=== PATIENT | female | born 1985 | race Caucasian/White ===

== ENCOUNTER 2018-06-19 09:06 | Inpatient (IN) ==
[2018-06-19 10:28] LABS: Baso # (Auto) 0.1 th/mm3 (0.0-0.2); Baso % (Auto) 0.6 % (0.0-2.0); Eos # (Auto) 0.1 th/mm3 (0.0-0.4); Eos % (Auto) 0.5 % (0.0-4.0); Hematocrit 36.6 % (35.0-46.0); Hemoglobin 12.5 gm/dL (11.6-15.3); Lymph # (Auto) 2.2 th/mm3 (1.0-4.8); Lymph % (Auto) 16.6 % (9.0-44.0); Mean Corpuscular HGB Conc 34.3 % (32.0-36.0); Mean Corpuscular Hemoglobin 29.6 pg (27.0-34.0); Mean Corpuscular Volume 86.5 fL (80.0-100.0); Mean Platelet Volume 8.3 fL (7.0-11.0); Mono # (Auto) 0.4 th/mm3 (0.0-0.9); Mono % (Auto) 3.1 % (0.0-8.0); Neut # (Auto) 10.4 th/mm3 (1.8-7.7); Neut % (Auto) 79.2 % (16.0-70.0); Platelet Count 262 th/mm3 (150-450); Red Blood Count 4.23 mil/mm3 (4.00-5.30); Red Cell Distribution Width 15.5 % (11.6-17.2); White Blood Count 13.1 th/mm3 (4.0-11.0)
[2018-06-19 10:40] LABS: Amphetamine Urine With Conf Neg (Neg); Benzodiazepine Urine With Conf Neg (Neg)
[2018-06-19] MEDS ORDERED: Citric Acid/Sodium Citrate Liq 30 ML UDC PO SCH (10:45)
[2018-06-19] MEDS ORDERED: Sodium Chloride 0.9% 2 ML Flush PRN IV.FLUSH (10:47)
[2018-06-19 10:48] LABS: Bilirubin,Urine Negative (Negative); Clarity,Urine Hazy (Clear); Color,Urine Yellow (Yellw/Straw); Glucose,Urine (UA) Negative (Negative); Leukocyte Esterase,Urine Negative (Negative); Mucus,Urine Few /lpf (Occasional); Nitrite,Urine Negative (Negative); Specific Gravity,Urine 1.019 (1.002-1.035); Squamous Epithelial Cell,Urine 2 /hpf (0-5); Triple Phosphate Crystal,Urine Occasional /hpf
[2018-06-19] MEDS ORDERED: Morphine Sulfate PF Inj 5 MG/10 ML Ampul ONE (11:14)
[2018-06-19] MEDS ORDERED: EPINEPHrine PF/SF Inj 1 MG/ML Ampul I-OCULAR ONE (11:33)
[2018-06-19] MEDS ORDERED: Naloxone Inj 0.4 MG/ML Vial IV.PUSH PRN (12:00)
[2018-06-19] MEDS ORDERED: Phenylephrine/NS 1000 MCG/10ML Syringe IV.PUSH ONE (12:00)
--- NOTE | 2018-06-19 12:03 | P.HPOB ---
Ms. MCCOY is a 32 y/o F at gestational age 39w3d here for a scheduled C- section. She reports a "mucous plug" yesterday, cough x1 week, and lower back pain. Pt reports movement has been normal and she has not experienced contractions. Denies vaginal bleeding, leakage of fluid, fever, CP, SOB, headache, or visual changes. All of her prior pregnancies were full-term C- sections. Per patient, her C-sections were due to her being "too small." No complications in previous C-sections. Denies any gynecological surgeries. Prior to her menstrual pattern was every ~28 days, lasted for ~6 days, with moderate flow. Denies PMH and PSH. No medications outside of vitamin and iron pills. NKDA. Denies family history of medical conditions. Social history includes a 5 pack year smoking history, social drinking (not in current ), and no recreational drug use. GBS neg on 05/23/18. Denies any abnormal tests during course of . Blood type if O+. Gen: NAD Cardiovascular: Normal S1/S2, no lower extremity edema Respiratory: Normal breath sounds in all alvarez Assessment/Plan: 1) IUP @ 39w3d 2) Repeat x3, #4 today
[2018-06-19] MEDS ORDERED: Acetaminophen 325 MG Tablet PO PRN (14:40)
[2018-06-19] MEDS ORDERED: Simethicone 80 MG Chew Tablet PO PRN (14:40)
--- NOTE | 2018-06-19 14:51 | XR ---
EXAM DATE: 06/19/2018 2:21 PM EDT AGE/SEX: 32 years / Female INDICATIONS: Evaluate for foreign body post . CLINICAL DATA: This is the patient's initial encounter. Patient reports that signs and symptoms have been present for 1 day and indicates a pain score of Nonresponsive. MEDICAL/SURGICAL HISTORY: Non-responsive. Non-responsive. COMPARISON: No prior exams available for comparison. FINDINGS: 2 AP views of the abdomen were performed. On the film marked # 1, There appears to be a Bovie device overlying the left upper quadrant. On the film marked # 2 there is a surgical type drain overlying t he proximal upper left thigh. The bowel gas pattern is unremarkable. The bony structures are grossly intact. The findings were relayed to the OR at the time the images were performed. CONCLUSION: Bovie device overlying the left upper quadrant. Surgical drain overlying the proximal left thigh. Electronically signed by: Ruddy Uribe MD 06/19/2018 2:50 PM EDT
[2018-06-19] MEDS ORDERED: Oxytocin 30 Units/500ml Premix 30 UNITS/500 ML BAG IV.SIG ONE (15:00)
--- NOTE | 2018-06-19 15:41 | MP ---
cc: Russell Castañeda MD DATE OF OPERATION: 06/19/2018 PREOPERATIVE DIAGNOSES: 1. Intrauterine at 39 weeks. 2. Mole of the left labia. 3. Desires permanent sterilization. POSTOPERATIVE DIAGNOSES: 1. Intrauterine at 39 weeks. 2. Mole of the left labia. 3. Desires permanent sterilization. PROCEDURE PERFORMED: 1. Excision of a 6 x 6 mm left labial mole. 2. Repeat low transverse section. 3. Bilateral tubal ligation. ANESTHESIA: Spinal. SURGEON: Russell Castañeda MD FINDINGS: A normal female , Apgars 9 and 9, weight was 613. The fallopian tubes, uterus, and ovaries were normal. COMPLICATIONS: She had a hematoma around the right uterine artery, which went retroperitoneal and through the broad ligament. This was quite difficult to control. COUNTS: Counts were correct; however, we did lose a needle in the middle of the surgery and got an x-ray to confirm. ESTIMATED BLOOD LOSS: Blood loss was 800 mL. FLUIDS: Crystalloids. CONDITION: The patient tolerated the procedure well and went to the recovery room in good condition. DESCRIPTION OF PROCEDURE: The patient was taken to the operating room and identified by name band and verbally, given a spinal anesthetic, and prepped and draped in the usual sterile fashion for a section. The first thing we did before we prepped and draped, is we removed the mole from her left labia with scissors and the hemostasis was created using silver nitrate. A timeout was taken and the old Pfannenstiel incisions were excised completely and the incision taken down to the midline until fascia was obtained. The fascia was taken off the rectus muscles by blunt and sharp dissection. This was quite difficult. There was a lot of scar tissue in this area. Once the abdominal cavity was entered, the incision was extended with care to avoid the urinary bladder, which was quite high up on the uterus and the anterior abdominal wall. At this point, a bladder flap was created; however, this was quite difficult. Pushing the bladder out of harm's way, we went a little bit higher than I normally go on the uterus to avoid bladder injury. This incision was taken down in the midline until the uterine cavity was entered and the incision was extended with the surgeon's fingers with good results. The vertex was grasped and using fundal pressure, the vertex was delivered. The hypopharynx and nasopharynx were suctioned and the remainder of the infant delivered. There was light meconium noted. The cord blood was obtained and the placenta was removed manually. The cord was allowed to pulse for 5-5 seconds. The uterine incision was repaired with 0 Vicryl in a running fashion with 1 layer and during the first layer, we got close to the right uterine vessel apparently and the large hematoma followed immediately. I called Dr. Emanuel Burrows in to help manage the situation. I put pressure on it. We evacuated this hematoma and with several [id number] stitches using 3-0 Vicryl on a small needle and [address] needle, we were able to stop the bleeding. We used Francisco several times to try to stop the bleeding when it was just a dull ooze. Once this had been accomplished and we had hemostasis, we put a little bit more Francisco to it and then we turned our attention to the fallopian tubes. The fallopian tubes were then identified and a small piece taken out of the midportion bilaterally using 2 plain gut. The uterus was delivered back into the abdomen and the surgical sites were again inspected for several minutes to make sure we had hemostasis. At this point, we reapproximated the rectus muscles with 0 Vicryl in a running fashion. We reapproximated the fascia with 0 Vicryl, the subcutaneous was repaired with 3-0 Vicryl and the skin was repaired with 4-0 Monocryl in a subcuticular manner. At this point, the wound was sterilely dressed. The patient tolerated the procedure well. We did get an x-ray at the end of the surgery as there was a missing needle that was found, but it was far away from the surgical site. We wanted to make sure that we did not have a missing needle. R. MD SOFÍA Hernandez/lalitha , 02:32 PM , 02:46 PM
--- NOTE | 2018-06-19 16:36 | P.HP ---
History of Present Illness Service: LABOR AND DELIVERY Primary Care Physician: Trista Nguyen Chief Complaint: 39 WEEK , HERE FOR REPEAT C/SECTION AND BILATERAL TUBAL History of Present Illness: 39 WEEKS GESTATION PREVIOUS C SECTION X 3 GBS NEGATIVE DESIRES STERILIZATION - Diagnosis (1) Term (2) Previous section (3) Sterilization Inpatient Certification: I certify that the inpatient services were ordered in accordance with Medicare regulations governing the order. This includes certification that hospital inpatient services are reasonable and necessary and in the case of services not specified as inpatient-only under 42 CFR 419.22(n), that they are appropriately provided as inpatient services in accordance to with the 2-midnight benchmark under 43 CFR 412.3(e) Estimated Total Length of Stay (Days): 3 Plans for Post Hospital Care: Home Review of Systems All other systems reviewed negative except as stated in HPI Respiratory: Reports cough Comments: X 1 WEEK Musculoskeletal: Reports back pain Comments: LOWER PMFSH - History History Provided By: Medical Record - Social History I have reviewed the patient's Social History: Yes - Tobacco History Second Hand Smoke Exposure: No Tobacco Use In Past 30 Days: Yes (1/2 PPD) Smoking Status: Current every day smoker Tobacco Type: Cigarettes Packs Per Day: 0.5 Years Smoked: 10 - Alcohol History How Often Do You Have a Drink Containing Alcohol: Never - Substance Use History Substance History: No History of Abuse - Travel History History of Recent Travel: No Recent Travel in the [place] Within the Last 8 Weeks: No Recent Travel Out of the Country Within the Last 8 Weeks: No - Immunization History Hx Influenza Vaccine This Season: No Medications and Allergies Active Medications: Active Medications Acetaminophen (Tylenol) 650 mg PO Q6H PRN PRN Reason: PAIN SCALE 1 TO 2 Diphenhydramine HCl (Benadryl) 50 mg PO Q6H PRN PRN Reason: MILD TO MODERATE ITCHING Stop: 06/20/18 16:22 Diphenhydramine HCl (Benadryl Inj) 25 mg IV.PUSH Q6H PRN PRN Reason: MILD TO MODERATE ITCHING Stop: 06/20/18 16:22 Diphtheria/Pertussis/Tetanus Vacc (Boostrix Vaccine Inj) 0.5 ml IM .ONCE ONE Stop: 06/20/18 16:01 Lactated Ringer's (Lr 1000 Ml Inj) 1,000 mls @ 150 mls/hr IV.CONT .[facility]6H40M [facility] Last Admin: 06/19/18 10:46 Dose: 150 mls/hr Cefazolin Sodium 1,000 mg/ (Sodium Chloride) 100 mls @ 200 mls/hr IV.SIG Q8H [facility] Stop: 06/19/18 23:29 Lactated Ringer's (Lr 1000 Ml Inj) 1,000 mls @ 100 mls/hr IV.CONT .Q10H [facility] Stop: 06/20/18 15:39 Oxytocin (Pitocin 30 Units/Ns 500 Ml Premix) 30 units in 500 mls @ 100 mls/hr IV.SIG ONCE ONE Stop: 06/19/18 19:59 Oxytocin (Pitocin 30 Units/Ns 500 Ml Premix) 30 units in 500 mls @ 100 mls/hr IV.SIG UNSCH PRN PRN Reason: Heavy bleeding Ibuprofen (Motrin) 800 mg PO Q8H PRN PRN Reason: cramping Measles/Mumps/Rubella Vaccine Live (M-M-R Ii Vaccine Inj) 0.5 ml SQ .ONCE ONE Stop: 06/20/18 16:01 Miscellaneous Information ([facility] [place] Nursing Information) 1 each OTHER UNSCH PRN PRN Reason: SEE LABEL COMMENTS Stop: 06/20/18 16:22 Miscellaneous Information ([facility] [place] Nursing Information) 1 each OTHER UNSCH PRN PRN Reason: SEE LABEL COMMENTS Stop: 06/20/18 16:22 Naloxone HCl (Narcan Inj) 0.4 mg IV.PUSH UNSCH PRN PRN Reason: SEE LABEL COMMENTS Stop: 06/20/18 16:22 Ondansetron HCl (Zofran Inj) 4 mg IV.PUSH Q6H PRN PRN Reason: NAUSEA OR VOMITING Oxycodone/Acetaminophen (Percocet 5/325 Mg) 1 tab PO Q4H PRN PRN Reason: PAIN SCALE 3 TO 5 Oxycodone/Acetaminophen (Percocet 5/325 Mg) 2 tab PO Q4H PRN PRN Reason: PAIN SCALE 6 TO 10 Vit/Calcium/Iron/Folic Ac (Stuartnatal Plus 3) 1 tab PO DAILY DAVID Senna/Docusate Sodium (Demetra-Colace) 2 tab PO Q12H PRN PRN Reason: CONSTIPATION Simethicone (Mylicon Chew) 80 mg PO QID PRN PRN Reason: FLATULENCE Sodium Chloride (Ns Flush) 2 ml IV.FLUSH BID DAVID Sodium Chloride (Ns Flush) 2 ml IV.FLUSH PRN PRN PRN Reason: FLUSH AFTER USING IV ACCESS Zolpidem Tartrate (Ambien) 5 mg PO HS PRN PRN Reason: INSOMNIA Allergies Allergy/AdvReac Type Severity Reaction Status Date / Time No Known Allergies Allergy Verified 06/19/18 09:43 Home Medications Medication Instructions Recorded Confirmed Type vit,[id number] 1 tab PO DAILY 06/19/18 06/19/18 History [PNV 29-1] Exam Vital signs: Vital Signs 06/19/18 10:47 06/19/18 10:54 06/19/18 10:55 Temperature 98.6 F Pulse Rate 79 77 80 Respiratory Rate 18 Blood Pressure 117/75 120/76 06/19/18 14:45 06/19/18 15:00 06/19/18 15:08 Temperature 97.3 F L Pulse Rate 99 H 91 H Respiratory Rate 14 16 Blood Pressure 96/50 L 95/53 L 06/19/18 15:15 06/19/18 15:23 06/19/18 15:29 Temperature 97.5 F L Pulse Rate 69 75 Respiratory Rate 14 12 Blood Pressure 98/59 L 101/61 06/19/18 15:36 06/19/18 15:44 06/19/18 15:45 Temperature 97.7 F Pulse Rate 75 Respiratory Rate 12 Blood Pressure 98/59 L 101/60 06/19/18 16:21 Temperature 97.7 F Pulse Rate 73 Respiratory Rate 16 Blood Pressure 80/57 L Intake & Output 06/18/18 06/19/18 06/19/18 18:59 06:59 18:59 Weight 53.524 kg Other: Weight On Admission 53.524 kg Narrative: EXAM DONE BY ANGELI LIU MS3 - Constitutional no acute distress - Routine HEENT Exam Head: Present: normocephalic - Routine Respiratory Exam Present: CTA bilaterally - Routine Cardiovascular Exam Present: RRR, S1, S2 - Routine Abdominal Exam Present: soft, normoactive bowel sounds Comments: GRAVID - Routine Skin Exam Present: intact - Routine Neurological Exam Present: alert, oriented X3 Results - Labs CBC & Chem 7: 06/19/18 10:00 Labs: Laboratory Results - last 24 hr 10/22/18 10/22/18 10/22/18 10:00 10:00 10:00 WBC 13.1 H RBC 4.23 Hgb 12.5 Hct 36.6 MCV 86.5 MCH 29.6 MCHC 34.3 RDW 15.5 Plt Count 262 MPV 8.3 Neut % (Auto) 79.2 H Lymph % (Auto) 16.6 Ada % (Auto) 3.1 Eos % (Auto) 0.5 Baso % (Auto) 0.6 Neut # (Auto) 10.4 H Lymph # (Auto) 2.2 Ada # (Auto) 0.4 Eos # (Auto) 0.1 Baso # (Auto) 0.1 WBC Differential . Differential Comment Auto diff final Urine Color Yellow Urine Clarity Hazy H Urine pH 7.0 Ur Specific Neeses 1.019 Urine Protein 100 H Urine Glucose (UA) Negative Urine Ketones Negative Urine Occult Blood Negative Urine Nitrate Negative Urine Bilirubin Negative Urine Urobilinogen 2.0 H Ur Leukocyte Esterase Negative Urine RBC 2 Urine WBC 1 Ur Squamous Epith Cells 2 Triple Phos Crystals Occasional H Urine Mucus Few H Micro UA Comment Culture not ind Ur Microscopic Review Not Reportable Urine Culture Comments Culture not ind Urine Opiates Screen Ur Barbiturates Screen Ur Amphetamine Screen U Benzodiazepines Scrn Urine Cocaine Screen U Cannabinoids Screen Blood Type O Positive Blood Type Recheck Antibody Screen Negative 06/19/18 10:00 WBC RBC Hgb Hct MCV MCH MCHC RDW Plt Count MPV Neut % (Auto) Lymph % (Auto) Ada % (Auto) Eos % (Auto) Baso % (Auto) Neut # (Auto) Lymph # (Auto) Ada # (Auto) Eos # (Auto) Baso # (Auto) WBC Differential Differential Comment Urine Color Urine Clarity Urine pH Ur Specific Neeses Urine Protein Urine Glucose (UA) Urine Ketones Urine Occult Blood Urine Nitrate Urine Bilirubin Urine Urobilinogen Ur Leukocyte Esterase Urine RBC Urine WBC Ur Squamous Epith Cells Triple Phos Crystals Urine Mucus Micro UA Comment Ur Microscopic Review Urine Culture Comments Urine Opiates Screen Neg Ur Barbiturates Screen Neg Ur Amphetamine Screen Neg U Benzodiazepines Scrn Neg Urine Cocaine Screen Neg U Cannabinoids Screen Neg Blood Type Blood Type Recheck Antibody Screen - Imaging Impressions Abdomen X-Ray 06/19/18 14:21 CONCLUSION: Bovie device overlying the left upper quadrant. Surgical drain overlying the proximal left thigh. Caprini VTE Risk Assessment Caprini VTE Risk Assessment: No/Low Risk (score <= 1) Caprini Risk Assessment Model: Point Value = 1 Point Value = 2 Point Value = 3 Point Value = 5 Age 41-60 Minor surgery BMI > 25 kg/m2 Swollen legs Varicose veins or History of unexplained or recurrent spontaneous Oral contraceptives or hormone replacement Sepsis (< 1 month) Serious lung disease, including pneumonia (< 1 month) Abnormal pulmonary function Acute myocardial infarction Congestive heart failure (< 1 month) History of inflammatory bowel disease Medical patient at bed rest Age 61-74 Arthroscopic surgery Major open surgery (> 45 min) Laparoscopic surgery (> 45 min) Malignancy Confined to bed (> 72 hours) Immobilizing plaster cast Central venous access Age >= 75 History of VTE Family history of VTE Factor V Leiden Prothrombin [id number] Lupus anticoagulant Anticardiolipin antibodies Elevated serum homocysteine Heparin-induced thrombocytopenia Other congenital or acquired thrombophilia Stroke (< 1 month) Elective arthroplasty Hip, pelvis, or leg fracture Acute spinal cord injury (< 1 month) Prophylaxis Regimen: Total Risk Factor Score Risk Level Prophylaxis Regimen 0-1 Low Early ambulation 2 Moderate Order ONE of the following: *Sequential Compression Device (SCD) *Heparin 5000 units SQ BID 3-4 Higher Order ONE of the following medications: *Heparin 5000 units SQ TID *Enoxaparin/Lovenox 40 mg SQ daily (WT < 150 kg, CrCl > 30 mL/min) *Enoxaparin/Lovenox 30 mg SQ daily (WT < 150 kg, CrCl > 10-29 mL/min) *Enoxaparin/Lovenox 30 mg SQ BID (WT < 150 kg, CrCl > 30 mL/min) AND/OR *Sequential Compression Device (SCD) 5 or more Highest Order ONE of the following medications: *Heparin 5000 units SQ TID (Preferred with Epidurals) *Enoxaparin/Lovenox 40 mg SQ daily (WT < 150 kg, CrCl > 30 mL/min) *Enoxaparin/Lovenox 30 mg SQ daily (WT < 150 kg, CrCl > 10-29 mL/min) *Enoxaparin/Lovenox 30 mg SQ BID (WT < 150 kg, CrCl > 30 mL/min) AND *Sequential Compression Device (SCD) Assessment and Plan - Assessment (1) Term Code(s): Z34.80 - Encounter for supervision of other normal , unspecified trimester Status: Acute (2) Previous section Code(s): Z98.891 - History of uterine scar from previous surgery Status: Acute (3) Sterilization Code(s): Z30.2 - Encounter for sterilization Status: Acute - Plan REPEAT C SECTION WITH BILATERAL TUBAL LIGATION Code Status: FULL Discharge Planning: DC HOME IN 2 DAYS
[2018-06-19 19:27] LABS: Hematocrit 26.4 % (35.0-46.0); Hemoglobin 8.6 gm/dL (11.6-15.3); Mean Corpuscular HGB Conc 32.4 % (32.0-36.0); Mean Corpuscular Hemoglobin 28.6 pg (27.0-34.0); Mean Corpuscular Volume 88.1 fL (80.0-100.0); Mean Platelet Volume 8.1 fL (7.0-11.0); Platelet Count 246 th/mm3 (150-450); Red Cell Distribution Width 15.6 % (11.6-17.2); White Blood Count 16.7 th/mm3 (4.0-11.0)
[2018-06-19] MEDS ORDERED: Oxytocin 30 Units/500ml Premix 30 UNITS/500 ML BAG IV.SIG PRN (19:40)
[2018-06-19] MEDS ORDERED: Zolpidem Tartrate 5 MG Tablet PO PRN (21:00)
[2018-06-19] MEDS ORDERED: Sodium Chloride 0.9% 2 ML Flush BID IV.FLUSH SCH (21:00)
[2018-06-20 06:20] LABS: Baso % (Auto) 0.3 % (0.0-2.0); Eos % (Auto) 0.1 % (0.0-4.0); Hematocrit 21.3 % (35.0-46.0); Hemoglobin 7.4 gm/dL (11.6-15.3); Lymph # (Auto) 2.6 th/mm3 (1.0-4.8); Lymph % (Auto) 19.4 % (9.0-44.0); Mean Corpuscular HGB Conc 34.6 % (32.0-36.0); Mean Corpuscular Hemoglobin 30.3 pg (27.0-34.0); Mean Corpuscular Volume 87.4 fL (80.0-100.0); Mean Platelet Volume 8.7 fL (7.0-11.0); Mono # (Auto) 0.6 th/mm3 (0.0-0.9); Mono % (Auto) 4.7 % (0.0-8.0); Neut # (Auto) 10.1 th/mm3 (1.8-7.7); Neut % (Auto) 75.5 % (16.0-70.0); Platelet Count 214 th/mm3 (150-450); Red Blood Count 2.44 mil/mm3 (4.00-5.30); Red Cell Distribution Width 15.1 % (11.6-17.2); White Blood Count 13.4 th/mm3 (4.0-11.0)
--- NOTE | 2018-06-20 08:07 | P.PNOB ---
Subjective Post op day: 1 Interval history: Doing well. No SOB, CP or Chest pressure. Been up twice no problems Tolerating diet No flatus yet. Objective Vital Signs/I&O: Vital Signs 06/19/18 10:47 06/19/18 10:54 06/19/18 10:55 Temperature 98.6 F Pulse Rate 79 77 80 Respiratory Rate 18 Blood Pressure 117/75 120/76 06/19/18 14:45 06/19/18 15:00 06/19/18 15:08 Temperature 97.3 F L Pulse Rate 99 H 91 H Respiratory Rate 14 16 Blood Pressure 96/50 L 95/53 L 06/19/18 15:15 06/19/18 15:23 06/19/18 15:29 Temperature 97.5 F L Pulse Rate 69 75 Respiratory Rate 14 12 Blood Pressure 98/59 L 101/61 06/19/18 15:36 06/19/18 15:44 06/19/18 15:45 Temperature 97.7 F Pulse Rate 75 Respiratory Rate 12 Blood Pressure 98/59 L 101/60 06/19/18 16:21 06/19/18 18:12 06/19/18 19:45 Temperature 97.7 F 97.7 F 96.4 F L Pulse Rate 73 75 87 Respiratory Rate 16 18 16 Blood Pressure 80/57 L 90/57 L 93/50 L 06/19/18 23:30 06/20/18 04:30 06/20/18 04:31 Temperature 98.0 F 97.9 F Pulse Rate 73 75 Respiratory Rate 18 16 Blood Pressure 112/54 L 97/45 L 06/20/18 07:22 Temperature 98.6 F Pulse Rate 87 Respiratory Rate 19 Blood Pressure 100/54 L Intake & Output 06/19/18 06/20/18 06/20/18 18:59 06:59 18:59 Intake Total 100 / 100 Balance 100 / 100 Weight 53.524 kg Intake: IV 100 / 100 Ancef Inj 1,000 MG In NS Inj 100 / 100 100 ML @ 200 mls/hr IV.SIG Q8H [facility] Rx#:[id number] Other: Weight On Admission 53.524 kg Result Diagrams: 06/20/18 05:15 Objective Remarks: GENERAL: Well-nourished, well-developed patient. CARDIOVASCULAR: Regular rate and rhythm without murmurs, gallops, or rubs. RESPIRATORY: Breath sounds equal bilaterally. No accessory muscle use. ABDOMEN/GI: Abdomen soft, non-tender, bowel sounds present. Incision: Clean, dry and intact. Fundus: Firm, non-tender at umbilicus. GENITOURINARY: Light to moderate bleeding. EXTREMITIES: No cyanosis or edema, non-tender, without signs of DVT. Medications and IVs: Active Medications Acetaminophen (Tylenol) 650 mg PO Q6H PRN PRN Reason: PAIN SCALE 1 TO 2 Diphenhydramine HCl (Benadryl) 50 mg PO Q6H PRN PRN Reason: MILD TO MODERATE ITCHING Stop: 06/20/18 11:59 Diphenhydramine HCl (Benadryl Inj) 25 mg IV.PUSH Q6H PRN PRN Reason: MILD TO MODERATE ITCHING Stop: 06/20/18 11:59 Diphtheria/Pertussis/Tetanus Vacc (Boostrix Vaccine Inj) 0.5 ml IM .ONCE ONE Stop: 06/20/18 16:01 Lactated Ringer's (Lr 1000 Ml Inj) 1,000 mls @ 150 mls/hr IV.CONT .Q6H40M [facility] Last Admin: 06/19/18 10:46 Dose: 150 mls/hr Lactated Ringer's (Lr 1000 Ml Inj) 1,000 mls @ 100 mls/hr IV.CONT .Q10H [facility] Stop: 06/20/18 15:39 Last Admin: 06/19/18 22:30 Dose: 100 mls/hr Oxytocin (Pitocin 30 Units/Ns 500 Ml Premix) 30 units in 500 mls @ 100 mls/hr IV.SIG UNSCH PRN PRN Reason: Heavy bleeding Ibuprofen (Motrin) 800 mg PO Q8H PRN PRN Reason: cramping Last Admin: 06/20/18 03:07 Dose: 800 mg Measles/Mumps/Rubella Vaccine Live (M-M-R Ii Vaccine Inj) 0.5 ml SQ .ONCE ONE Stop: 06/20/18 16:01 Miscellaneous Information ([facility] [place] Nursing Information) 1 each OTHER UNSCH PRN PRN Reason: SEE LABEL COMMENTS Stop: 06/20/18 11:59 Miscellaneous Information ([facility] [place] Nursing Information) 1 each OTHER UNSCH PRN PRN Reason: SEE LABEL COMMENTS Stop: 06/20/18 11:59 Naloxone HCl (Narcan Inj) 0.4 mg IV.PUSH UNSCH PRN PRN Reason: SEE LABEL COMMENTS Stop: 06/20/18 11:59 Ondansetron HCl (Zofran Inj) 4 mg IV.PUSH Q6H PRN PRN Reason: NAUSEA OR VOMITING Oxycodone/Acetaminophen (Percocet 5/325 Mg) 1 tab PO Q4H PRN PRN Reason: PAIN SCALE 3 TO 5 Last Admin: 06/20/18 06:55 Dose: 1 tab Oxycodone/Acetaminophen (Percocet 5/325 Mg) 2 tab PO Q4H PRN PRN Reason: PAIN SCALE 6 TO 10 Vit/Calcium/Iron/Folic Ac (Stuartnatal Plus 3) 1 tab PO DAILY DAVID Senna/Docusate Sodium (Demetra-Colace) 2 tab PO Q12H PRN PRN Reason: CONSTIPATION Simethicone (Mylicon Chew) 80 mg PO QID PRN PRN Reason: FLATULENCE Sodium Chloride (Ns Flush) 2 ml IV.FLUSH BID DAVID Last Admin: 06/20/18 03:19 Dose: Not Given Sodium Chloride (Ns Flush) 2 ml IV.FLUSH PRN PRN PRN Reason: FLUSH AFTER USING IV ACCESS Zolpidem Tartrate (Ambien) 5 mg PO HS PRN PRN Reason: INSOMNIA Assessment and Plan - Diagnosis (1) Term Code(s): Z34.80 - Encounter for supervision of other normal , unspecified trimester Status: Acute (2) Previous section Code(s): Z98.891 - History of uterine scar from previous surgery Status: Acute (3) Sterilization Code(s): Z30.2 - Encounter for sterilization Status: Acute - Plan 1. POD #1 2. Severe anemia due to acute blood loss. She had a large hematoma in the right broad ligament. 3. Will get up today and shower and remove the bandage. Will check a cbc in the am
[2018-06-20] MEDS: Prenatal Vit/Ca/Iron/Folic Acid Tablet PO SCH (11:16)
[2018-06-20] MEDS: guaiFENesin/Dextromethorphan 200 MG/20 MG 10 ML UDC PO PRN ×2 (15:48→19:23)
[2018-06-20] MEDS ORDERED: Measles/Mumps/Rubella Vaccine Inj 0.5 ML Vial SQ ONE (16:00)
[2018-06-20] MEDS ORDERED: Diphtheria/Tetanus/Pertussis Vaccine Inj 0.5 ML Syringe IM ONE (16:00)
[2018-06-20] MEDS: Senna/Docusate Sodium 8.6/50 MG Tablet PO PRN (20:47)
[2018-06-21 07:38] LABS: Baso % (Auto) 0.3 % (0.0-2.0); Eos % (Auto) 0.1 % (0.0-4.0); Hematocrit 21.5 % (35.0-46.0); Hemoglobin 7.3 gm/dL (11.6-15.3); Lymph % (Auto) 13.7 % (9.0-44.0); Mean Corpuscular HGB Conc 33.7 % (32.0-36.0); Mean Corpuscular Hemoglobin 29.4 pg (27.0-34.0); Mean Corpuscular Volume 87.2 fL (80.0-100.0); Mean Platelet Volume 7.6 fL (7.0-11.0); Mono # (Auto) 0.5 th/mm3 (0.0-0.9); Mono % (Auto) 3.7 % (0.0-8.0); Neut # (Auto) 12.1 th/mm3 (1.8-7.7); Neut % (Auto) 82.2 % (16.0-70.0); Platelet Count 229 th/mm3 (150-450); Red Blood Count 2.47 mil/mm3 (4.00-5.30); Red Cell Distribution Width 15.6 % (11.6-17.2); White Blood Count 14.7 th/mm3 (4.0-11.0)
[2018-06-21] MEDS: Senna/Docusate Sodium 8.6/50 MG Tablet PO PRN (07:56)
[2018-06-21] MEDS: Prenatal Vit/Ca/Iron/Folic Acid Tablet PO SCH (08:00)
[2018-06-21] MEDS: guaiFENesin/Dextromethorphan 200 MG/20 MG 10 ML UDC PO PRN (08:00)
[2018-06-21 09:00] VITALS: BP 116/61; RESP 20; TEMP 98.1
--- NOTE | 2018-06-21 16:11 | P.PNOB ---
Subjective Post op day: 2 Objective Vital Signs/I&O: Vital Signs 06/20/18 19:57 06/21/18 08:00 Temperature 98.3 F 98.1 F Pulse Rate 94 H 10 L Respiratory Rate 18 20 Blood Pressure 111/61 116/61 Result Diagrams: 06/21/18 07:29 Objective Remarks: GENERAL: Well-nourished, well-developed patient, pale CARDIOVASCULAR: Regular rate and rhythm without murmurs, gallops, or rubs. RESPIRATORY: Breath sounds equal bilaterally. No accessory muscle use. ABDOMEN/GI: Abdomen soft, non-tender, bowel sounds present. Incision: Clean, dry and intact. Fundus: Firm, non-tender at umbilicus. GENITOURINARY: Light to moderate bleeding. EXTREMITIES: No cyanosis or edema, non-tender, without signs of DVT. Medications and IVs: Active Medications Acetaminophen (Tylenol) 650 mg PO Q6H PRN PRN Reason: PAIN SCALE 1 TO 2 Guaifenesin/Dextromethorphan (Robitussin Dm 200/20 Mg/10 Ml Liq) 10 ml PO Q4H PRN PRN Reason: COUGH AND/OR COLD SYMPTOMS Last Admin: 06/21/18 08:00 Dose: 10 ml Lactated Ringer's (Lr 1000 Ml Inj) 1,000 mls @ 150 mls/hr IV.CONT .Q6H40M DAVID Last Admin: 06/19/18 10:46 Dose: 150 mls/hr Oxytocin (Pitocin 30 Units/Ns 500 Ml Premix) 30 units in 500 mls @ 100 mls/hr IV.SIG UNSCH PRN PRN Reason: Heavy bleeding Iron Sucrose 100 mg/ Sodium (Chloride) 105 mls @ 105 mls/hr IV.SIG DAILY DAVID Stop: 06/23/18 09:59 Ibuprofen (Motrin) 800 mg PO Q8H PRN PRN Reason: cramping Last Admin: 06/21/18 14:20 Dose: 800 mg Ondansetron HCl (Zofran Inj) 4 mg IV.PUSH Q6H PRN PRN Reason: NAUSEA OR VOMITING Oxycodone/Acetaminophen (Percocet 5/325 Mg) 1 tab PO Q4H PRN PRN Reason: PAIN SCALE 3 TO 5 Last Admin: 06/21/18 06:05 Dose: 1 tab Oxycodone/Acetaminophen (Percocet 5/325 Mg) 2 tab PO Q4H PRN PRN Reason: PAIN SCALE 6 TO 10 Last Admin: 06/21/18 14:19 Dose: 2 tab Vit/Calcium/Iron/Folic Ac (Stuartnatal Plus 3) 1 tab PO DAILY [facility] Last Admin: 06/21/18 08:00 Dose: 1 tab Senna/Docusate Sodium (Demetra-Colace) 2 tab PO Q12H PRN PRN Reason: CONSTIPATION Last Admin: 06/21/18 07:56 Dose: 2 tab Simethicone (Mylicon Chew) 80 mg PO QID PRN PRN Reason: FLATULENCE Sodium Chloride (Ns Flush) 2 ml IV.FLUSH BID DAVID Last Admin: 06/21/18 08:00 Dose: Not Given Sodium Chloride (Ns Flush) 2 ml IV.FLUSH PRN PRN PRN Reason: FLUSH AFTER USING IV ACCESS Zolpidem Tartrate (Ambien) 5 mg PO HS PRN PRN Reason: INSOMNIA Assessment and Plan - Diagnosis (1) Term Code(s): Z34.80 - Encounter for supervision of other normal , unspecified trimester Status: Acute (2) Previous section Code(s): Z98.891 - History of uterine scar from previous surgery Status: Acute (3) Sterilization Code(s): Z30.2 - Encounter for sterilization Status: Resolved (4) Severe anemia Code(s): D64.9 - Anemia, unspecified Status: Acute Plan: iv Venofer and oral iron post - Plan POD #2 Severe anemia due to acute blood loss. hgb 7.4 yesterday and 7.3 today will repeat in am IV Venofer ordered VSS, denies dizziness, SOB or chest pain. ambulating without difficulty pt c/o cough, lungs clear passing flatus routine care Discharge Planning: dc home tomorrow
[2018-06-21 16:14] VITALS: PULSE 91
[2018-06-21] MEDS ORDERED: Iron Sucrose Inj 100 MG in Sodium Chlor 0.9% Inj 100 ML IV.SIG SCH (17:00)
== END 2018-06-21 16:38 | disposition home or self-care (01) ==
LOC: H2E 09:06 → H1EA 15:56
PROVIDERS: ADMIT Obstetrics & Gynecology; ATTEND Obstetrics & Gynecology